=== PATIENT | female | born 1955 | race Caucasian/White ===

== ENCOUNTER → 2022-06-03 07:52 | Outpatient (BNVA) | payer MEDICARE, OTHER, SELFPAY | PROVIDERS: PCP Nurse Practitioner; Visit Provider Nurse Practitioner Family | DX: N39.46 Mixed incontinence (principal) | CPT/HCPCS: 51798; 81003; 99203 ==

== ENCOUNTER → 2022-09-03 09:08 | Outpatient (BNVA) | payer MEDICARE, OTHER, SELFPAY | PROVIDERS: PCP Nurse Practitioner; Visit Provider Urology | DX: N39.46 Mixed incontinence (principal); N36.42 Intrinsic sphincter deficiency (ISD) | CPT/HCPCS: 51798; 99213 ==

== ENCOUNTER → 2023-03-05 13:44 | Outpatient (BNVA) | payer MEDICARE, OTHER, SELFPAY | PROVIDERS: PCP Nurse Practitioner; Referring Provider Nurse Practitioner; Visit Provider Dermatology | DX: D23.62 Other benign neoplasm of skin of left upper limb, including shoulder (principal); L40.8 Other psoriasis; L82.1 Other seborrheic keratosis; L57.0 Actinic keratosis; L81.4 Other melanin hyperpigmentation; D22.39 Melanocytic nevi of other parts of face | CPT/HCPCS: 17000; 17003; 99203 ==

== ENCOUNTER → 2023-07-28 17:55 | Outpatient (BNVA) | payer MEDICARE, OTHER, SELFPAY | PROVIDERS: PCP Nurse Practitioner; Visit Provider Nurse Practitioner Family | DX: R69 Illness, unspecified (principal); U07.1 COVID-19 | CPT/HCPCS: 87400; 87426 ==

== ENCOUNTER → 2023-08-06 07:59 | Outpatient (BNVA) | payer MEDICARE, OTHER, SELFPAY | PROVIDERS: PCP Nurse Practitioner; Referring Provider Nurse Practitioner; Visit Provider Internal Medicine | DX: E03.9 Hypothyroidism, unspecified (principal); I10 Essential (primary) hypertension; R13.10 Dysphagia, unspecified; H53.8 Other visual disturbances; Z79.890 Hormone replacement therapy | CPT/HCPCS: 99204 ==

== ENCOUNTER → 2023-08-15 09:50 | Outpatient (BNVA) | payer MEDICARE, OTHER, SELFPAY | PROVIDERS: PCP Nurse Practitioner; Referring Provider Internal Medicine; Visit Provider Internal Medicine | DX: E03.9 Hypothyroidism, unspecified (principal) | CPT/HCPCS: 83516; 84432; 84439; 84443; 84480; 86800 ==

== ENCOUNTER 2023-08-19 13:01 | Outpatient (CLI) | payer MEDICARE, OTHER, SELFPAY ==
--- NOTE | 2023-08-19 13:30 | USR_ITS ---
PROCEDURE INFORMATION: Exam: US Soft Tissue Head and Neck, Thyroid Exam date and time: 08/19/2023 1:40 PM Age: 68 years old Clinical indication: Other: Enlarged with difficulty swallowing; Additional info: Thyroid TECHNIQUE: Imaging protocol: Real-time ultrasound scan of the neck with image documentation. Exam focused on the thyroid. COMPARISON: No relevant prior studies available. FINDINGS: Right thyroid lobe: Right lobe measures 4.9 x 1.6 x 1.5 cm and demonstrates homogeneous echotexture. A rounded well-defined mildly hypoechoic nodule is seen within the inferior right lobe 9 x 6 x 7 mm. Flow appears unremarkable. Left thyroid lobe: Left lobe measures 3.9 x 1.2 x 1.4 cm and demonstrates homogeneous echotexture. No nodule is seen. Flow appears unremarkable. Isthmus: Isthmus measures 3.8 mm and appears unremarkable. Lymph nodes: A small oval-shaped well-defined hypoechoic nodule with partial central echogenic component is seen adjacent to the left thyroid consistent with small lymph node 5 x 3 x 8 mm. US/US thyroid [id number] IMPRESSION: 1. No significant thyromegaly. 2. Subcentimeter hypoechoic nodule of 9 x 6 x 7 mm within the inferior right lobe. No other nodule. 3. Small 5 x 3 x 8 mm lymph node on the left. TR4 regarding subcentimeter right thyroid nodule. Given the near 1 cm size, six-month follow-up can be performed to ensure stability.
== END 2023-08-19 13:02 | disposition home or self-care (01) ==
LOC: RAD 13:01
PROVIDERS: PCP Nurse Practitioner; Visit Provider Internal Medicine
DX: E03.9 Hypothyroidism, unspecified (principal); E04.1 Nontoxic single thyroid nodule
CPT/HCPCS: 76536

== ENCOUNTER → 2023-10-14 08:22 | Outpatient (BNVA) | payer MEDICARE, OTHER, SELFPAY | PROVIDERS: PCP Nurse Practitioner; Referring Provider Internal Medicine; Visit Provider Internal Medicine | DX: E03.9 Hypothyroidism, unspecified (principal) | CPT/HCPCS: 84439; 84443; 84480 ==

== ENCOUNTER → 2023-10-22 10:04 | Outpatient (BNVA) | payer MEDICARE, OTHER, SELFPAY | PROVIDERS: PCP Nurse Practitioner; Visit Provider Internal Medicine | DX: E03.9 Hypothyroidism, unspecified (principal); H53.8 Other visual disturbances; I10 Essential (primary) hypertension; R13.10 Dysphagia, unspecified; Z79.890 Hormone replacement therapy | CPT/HCPCS: 99214 ==

== ENCOUNTER 2023-12-24 11:01 | Outpatient (CLI) | payer MEDICARE, OTHER, SELFPAY ==
--- NOTE | 2023-12-24 11:15 | US_ITS ---
WS: [id number] THYROID ULTRASOUND HISTORY: thyroid COMPARISON: 08/19/2023 Right lobe: 1.5 cm x 1.4 cm x 4.3 cm (w x ap x l). Volume: 4.5 cm3. Normal sized gland. Hypoechoic nodule inferior RIGHT thyroid measures 0.7 x 0.7 x 0.9 cm. This is a h ypoechoic nodule with mild increased vascularity. Very similar in appearance to the prior study from 08/19/2023. No new nodules. Left lobe: 1.5 cm x 1.3 cm x 4.8 cm (w x ap x l). Volume: 4.2 cm3. Normal size and echotexture. No significant or dominant nodules are present. Isthmus: 0.2 cm. IMPRESSION: 1. TI-RADS 4; hypoechoic nodule inferior pole RIGHT thyroid is reidentified with no interval change. Yearly thyroid ultrasound evaluation can be performed as recommended by TI-RADS criteria. 2. 2. No LEFT thyroid nodule.
== END 2023-12-24 11:02 | disposition home or self-care (01) ==
LOC: RAD 11:02
PROVIDERS: PCP Nurse Practitioner; Visit Provider Internal Medicine
DX: E03.9 Hypothyroidism, unspecified (principal)
CPT/HCPCS: 76536

== ENCOUNTER → 2024-02-11 07:42 | Outpatient (BNVA) | payer MEDICARE, OTHER, SELFPAY | PROVIDERS: Referring Provider Internal Medicine; Visit Provider Psychiatry & Neurology Neurology | DX: H53.8 Other visual disturbances (principal); R13.10 Dysphagia, unspecified; R26.89 Other abnormalities of gait and mobility; N39.46 Mixed incontinence | CPT/HCPCS: 36415; 82565; 99203 ==

== ENCOUNTER 2024-02-19 09:07 | Outpatient (CLI) | payer MEDICARE, OTHER, SELFPAY ==
--- NOTE | 2024-02-19 09:30 | USCV_ITS ---
Sophia Hong Age: 68 Gender: F : 1955 Exam Date: 02/19/2024 09:12 Ordering Phys: Abel Cortez MD Technologist: INDER [place]am Location[place] [facility] [place]: Balance Disorder Risk Factors: Previous Vascular Surgery: Right Brachial BP: / Left Brachial BP: / Right Left Velocity (cm/s) Spectral Plaque Velocity (cm/s) Spectral Plaque Syst/Diast Broadening Syst/Diast Broadening 78.90/ 18.00 Prox CCA 80.70 / 20.70 80.20/ 24.50 Mid CCA 75.00 / 24.10 76.30/ 24.50 Distal CCA 73.80 / 27.80 78.90/ 27.10 Prox ICA 45.40 / 17.20 78.70/ 27.70 Mid ICA 44.70 / 19.80 70.90/ 26.70 Distal ICA 75.80 / 22.10 78.90 ECA 52.10 1.00 ICA/CCA 1.00 Antegrade Vertebral Antegrade 55.10/ 20.60 cm/s 57.40/ 18.20 cm/s Tri Subclavian Tri 169.0 112.7 0 0 FINDINGS Comparison: none available. No significant elevation of systolic or diastolic velocities. Waveforms are normal. Diffuse bilateral scattered calcified plaque and intimal thickening throughout the common carotid arteries and extending through the bifurcation. Antegrade vertebral arteries. CONCLUSIONS Bilateral ICA stenosis less than 50%. Bilateral carotid atherosclerosis. Dr. Marialuisa Montilla DO (Electronically Signed) Final Date: 19 Feb 2024 10:33 S
== END 2024-02-19 09:08 | disposition home or self-care (01) ==
LOC: RAD 09:07
PROVIDERS: Visit Provider Psychiatry & Neurology Neurology
DX: N39.46 Mixed incontinence (principal); R26.89 Other abnormalities of gait and mobility; I65.23 Occlusion and stenosis of bilateral carotid arteries
CPT/HCPCS: 93880

== ENCOUNTER → 2024-03-03 10:57 | Outpatient (BNVA) | payer MEDICARE, OTHER, SELFPAY | PROVIDERS: Visit Provider Nurse Practitioner Family | DX: D23.62 Other benign neoplasm of skin of left upper limb, including shoulder (principal); L40.8 Other psoriasis; L82.1 Other seborrheic keratosis; L57.0 Actinic keratosis; L81.4 Other melanin hyperpigmentation; D22.39 Melanocytic nevi of other parts of face; L30.4 Erythema intertrigo | CPT/HCPCS: 17000; 99214 ==

== ENCOUNTER → 2024-03-15 09:05 | Outpatient (BNVA) | payer MEDICARE, OTHER, SELFPAY | PROVIDERS: Referring Provider Internal Medicine; Visit Provider Internal Medicine | DX: E03.9 Hypothyroidism, unspecified (principal) | CPT/HCPCS: 84439; 84443 ==

== ENCOUNTER → 2024-03-22 10:37 | Outpatient (BNVA) | payer MEDICARE, OTHER, SELFPAY | PROVIDERS: Visit Provider Internal Medicine | DX: U07.1 COVID-19 (principal); E03.9 Hypothyroidism, unspecified; I10 Essential (primary) hypertension; R13.10 Dysphagia, unspecified; H53.8 Other visual disturbances; Z79.890 Hormone replacement therapy | CPT/HCPCS: 99214 ==

== ENCOUNTER → 2024-05-18 15:17 | Outpatient (BNVA) | payer MEDICARE, OTHER, SELFPAY | PROVIDERS: Visit Provider Psychiatry & Neurology Neurology | DX: H53.8 Other visual disturbances (principal) | CPT/HCPCS: 99212; G0463 ==

== ENCOUNTER → 2024-06-17 09:08 | Outpatient (BNVA) | payer MEDICARE, OTHER, SELFPAY | PROVIDERS: Referring Provider Internal Medicine; Visit Provider Internal Medicine | DX: U07.1 COVID-19 (principal); E03.9 Hypothyroidism, unspecified | CPT/HCPCS: 84439; 84443; 84480 ==

== ENCOUNTER → 2024-07-01 09:21 | Outpatient (BNVA) | payer MEDICARE, OTHER, SELFPAY | PROVIDERS: PCP Family Medicine; Visit Provider Podiatrist Foot & Ankle Surgery | DX: M79.671 Pain in right foot (principal); E03.9 Hypothyroidism, unspecified; I10 Essential (primary) hypertension; G57.62 Lesion of plantar nerve, left lower limb; R13.10 Dysphagia, unspecified; H53.8 Other visual disturbances; M21.621 Bunionette of right foot; M21.622 Bunionette of left foot; Z79.890 Hormone replacement therapy; M20.5X1 Other deformities of toe(s) (acquired), right foot | CPT/HCPCS: 73630; 99214 ==

== ENCOUNTER 2024-07-30 07:20 | Outpatient (CLI) | payer MEDICARE, OTHER, SELFPAY ==
--- NOTE | 2024-07-30 07:45 | US_ITS ---
WS: [id number] THYROID ULTRASOUND HISTORY: thyroid nodules COMPARISON: 12/24/2023, 08/19/2023 Right lobe: 1.3 cm x 1.4 cm x 4.0 cm (w x ap x l). Volume: 3.5 cm3. Normal sized gland. Reidentified is the hypoechoic nodule in the inferior pole measuring 0.7 x 0.6 x 1.1 cm. This is a solid nodule which has not increased in size. No increased vascularity or echogenic foci. Left lobe: 1.4 cm x 1.5 cm x 4.5 cm (w x ap x l). Volume: 4.3 cm3. Normal size and echotexture. No significant or dominant nodules are present. Isthmus: 0.2 cm. US/US thyroid [id number] IMPRESSION: 1. Stable TI-RADS 4 nodule lower pole RIGHT thyroid. Recommend yearly ultrasou nd evaluation based upon TI-RADS recommendations. Additional yearly follow-up i n 1 year and if stable follow-up at 2 years. 2. Negative LEFT thyroid lobe.
== END 2024-07-30 07:21 | disposition home or self-care (01) ==
LOC: RAD 07:20
PROVIDERS: PCP Family Medicine; Visit Provider Internal Medicine
DX: E04.1 Nontoxic single thyroid nodule (principal); E03.9 Hypothyroidism, unspecified
CPT/HCPCS: 76536

== ENCOUNTER → 2024-09-08 09:30 | Outpatient (BNVA) | payer MEDICARE, OTHER, SELFPAY | PROVIDERS: PCP Family Medicine; Visit Provider Internal Medicine | DX: E03.9 Hypothyroidism, unspecified (principal); I10 Essential (primary) hypertension; R13.10 Dysphagia, unspecified; H53.8 Other visual disturbances; Z79.890 Hormone replacement therapy; R53.83 Other fatigue; E55.9 Vitamin D deficiency, unspecified; U07.1 COVID-19 | CPT/HCPCS: 99214 ==

== ENCOUNTER → 2024-09-23 08:25 | Outpatient (BNVA) | payer MEDICARE, OTHER, SELFPAY | PROVIDERS: PCP Family Medicine; Visit Provider Nurse Practitioner Family | DX: L30.4 Erythema intertrigo (principal); L30.8 Other specified dermatitis; D23.62 Other benign neoplasm of skin of left upper limb, including shoulder; L40.8 Other psoriasis; L82.1 Other seborrheic keratosis; L81.4 Other melanin hyperpigmentation; L57.0 Actinic keratosis | CPT/HCPCS: 17000; 99214 ==

== ENCOUNTER → 2024-09-27 07:42 | Outpatient (BNVA) | payer MEDICARE, OTHER, SELFPAY | PROVIDERS: PCP Family Medicine; Visit Provider Podiatrist Foot & Ankle Surgery | DX: G57.62 Lesion of plantar nerve, left lower limb; M21.621 Bunionette of right foot; M21.622 Bunionette of left foot; M20.5X1 Other deformities of toe(s) (acquired), right foot | CPT/HCPCS: 99213 ==

== ENCOUNTER → 2024-11-08 09:30 | Outpatient (BNVA) | payer MEDICARE, OTHER, SELFPAY | PROVIDERS: PCP Family Medicine; Visit Provider Obstetrics & Gynecology | DX: Z01.419 Encounter for gynecological examination (general) (routine) without abnormal findings (principal) | CPT/HCPCS: 87624 ==

== ENCOUNTER → 2024-12-24 08:59 | Outpatient (BNVA) | payer MEDICARE, OTHER, SELFPAY | PROVIDERS: PCP Family Medicine; Referring Provider Internal Medicine; Visit Provider Internal Medicine | DX: E55.9 Vitamin D deficiency, unspecified (principal); Z79.890 Hormone replacement therapy; E03.9 Hypothyroidism, unspecified; U07.1 COVID-19 | CPT/HCPCS: 82306; 83540; 83735; 84439; 84443; 85025 ==

== ENCOUNTER → 2025-01-06 08:22 | Outpatient (BNVA) | payer MEDICARE, OTHER, SELFPAY | PROVIDERS: PCP Family Medicine; Visit Provider Internal Medicine | DX: E03.9 Hypothyroidism, unspecified (principal); I10 Essential (primary) hypertension; R13.10 Dysphagia, unspecified; H53.8 Other visual disturbances; Z79.890 Hormone replacement therapy; R53.83 Other fatigue; E55.9 Vitamin D deficiency, unspecified | CPT/HCPCS: 99214 ==

== ENCOUNTER → 2025-03-02 07:49 | Outpatient (BNVA) | payer MEDICARE, OTHER, SELFPAY | PROVIDERS: PCP Family Medicine; Visit Provider Nurse Practitioner Family | DX: L30.4 Erythema intertrigo (principal); D23.62 Other benign neoplasm of skin of left upper limb, including shoulder; L81.4 Other melanin hyperpigmentation | CPT/HCPCS: 99214 ==

== ENCOUNTER → 2025-05-24 13:51 | Outpatient (BNVA) | payer MEDICARE, OTHER, SELFPAY | PROVIDERS: PCP Nurse Practitioner Family; Visit Provider Podiatrist Foot & Ankle Surgery | DX: G57.62 Lesion of plantar nerve, left lower limb (principal); M21.621 Bunionette of right foot; M21.622 Bunionette of left foot; M20.5X1 Other deformities of toe(s) (acquired), right foot | CPT/HCPCS: 64455; 99213; J1100; J3301; J3490 ==

== ENCOUNTER 2025-06-08 10:52 | Outpatient (CLI) | payer MEDICARE, OTHER, SELFPAY ==
--- NOTE | 2025-06-08 11:15 | USR_ITS ---
PROCEDURE INFORMATION: Exam: US Soft Tissue Head and Neck, Thyroid Exam date and time: 06/08/2025 11:02 AM Age: 70 years old Clinical indication: Condition or disease; Thyroid disorder; Other: Not specified; Additional info: See problem list TECHNIQUE: Imaging protocol: Real-time ultrasound scan of the neck with image documentation. Exam focused on the thyroid. COMPARISON: [place] thyroid [id number] 07/30/2024 7:32 AM FINDINGS: Right thyroid lobe: A right inferior thyroid nodule measures 0.5 cm AP x 0.8 cm TV by 1.1 cm cc, stable from the prior exam measuring 0.7 x 0.6 x 1.1 cm (allowing differences for acquisition/technique). The right thyroid measures 1.2 x 1.5 x 4.8 cm, within normal limits. Left thyroid lobe: The left thyroid measures 1.1 x 1.2 x 4.4 cm, within normal limits. No left thyroid nodules are present. Isthmus: TI-RADS category TR4, Moderately Suspicious. Follow-up thyroid ultrasound at 1, 2, 3, and 5 years is recommended. (Reference: Emelia). The isthmus measures 0.3 cm, within normal limits. Other findings: The nodule solid/completely solid, hypoechoic, wider than tall, with smooth margins, and no calcification (TI-RADS 4). US/US thyroid [id number] IMPRESSION: Stable 1.1 cm TR 4 right thyroid nodule. Follow-up sonogram in 2 years is warranted. REFERENCES: Emelia CERVANTES, Cali WD, Chadwick EG et al. ACR Thyroid Imaging, Reporting and Data System (TI-RADS): White Paper of the ACR TI-RADS Committee. J Am Azam Radiol. 2017; 14: 587-595.
== END 2025-06-08 10:53 | disposition home or self-care (01) ==
LOC: RAD 10:53
PROVIDERS: PCP Nurse Practitioner Family; Visit Provider Internal Medicine
DX: E04.1 Nontoxic single thyroid nodule (principal); E03.9 Hypothyroidism, unspecified; I10 Essential (primary) hypertension; R13.10 Dysphagia, unspecified; H53.8 Other visual disturbances; Z79.890 Hormone replacement therapy; R53.83 Other fatigue; E55.9 Vitamin D deficiency, unspecified
CPT/HCPCS: 76536

== ENCOUNTER → 2025-06-28 09:03 | Outpatient (BNVA) | payer MEDICARE, OTHER, SELFPAY | PROVIDERS: PCP Nurse Practitioner Family; Referring Provider Internal Medicine; Visit Provider Internal Medicine | DX: U07.1 COVID-19 (principal); E03.9 Hypothyroidism, unspecified; I10 Essential (primary) hypertension; R13.10 Dysphagia, unspecified; H53.8 Other visual disturbances; Z79.890 Hormone replacement therapy; R53.83 Other fatigue; E55.9 Vitamin D deficiency, unspecified | CPT/HCPCS: 84439; 84443 ==

== ENCOUNTER 2025-07-07 10:21 | Outpatient (CLI) | payer MEDICARE, OTHER, SELFPAY | END 2025-07-07 10:22 | disposition home or self-care (01) | LOC: SPT 10:22 | PROVIDERS: PCP Nurse Practitioner Family; Visit Provider Podiatrist Foot & Ankle Surgery | DX: Z46.89 Encounter for fitting and adjustment of other specified devices (principal); G57.62 Lesion of plantar nerve, left lower limb; M21.621 Bunionette of right foot; M21.622 Bunionette of left foot; M20.5X1 Other deformities of toe(s) (acquired), right foot; E55.9 Vitamin D deficiency, unspecified | CPT/HCPCS: L3030 ==

== ENCOUNTER → 2025-08-29 08:32 | Outpatient (BNVA) | payer MEDICARE, OTHER, SELFPAY | PROVIDERS: PCP Nurse Practitioner Family; Visit Provider Podiatrist Foot & Ankle Surgery | DX: M21.621 Bunionette of right foot (principal); M21.622 Bunionette of left foot; M20.5X1 Other deformities of toe(s) (acquired), right foot; G57.62 Lesion of plantar nerve, left lower limb | CPT/HCPCS: 99214 ==